=== PATIENT | female | born 1970 | race Caucasian/White ===

== ENCOUNTER 2017-12-17 19:42 | Emergency (ER) | payer OTHER ==
[2017-12-17 19:55] VITALS: BP 135/85; PULSE 85; TEMP 98; BMI 34.9
--- NOTE | 2017-12-17 19:56 | PDOC ---
Rapid Medical Evaluation Chief Complaint: Lightheaded Time Seen by Provider: 12/17/17 19:52 Medical Evaluation: Allergies Allergy/AdvReac Type Severity Reaction Status Date / Time No Known Allergies Allergy Verified 12/17/17 19:52 12/17/17 19:52 Pt presents to the ED for headache starting today. States she has a hx of migraines. States that the pain is a banging. Light and loud sounds makes it worse. Admits to dizziness, nausea. States that shes never had a migraine this intense before. Exam: Appears uncomfortable. No gross neuro deficits Orders: Labs, IV, imaging deferred to provider Pt to proceed to the ED for further evaluation Discharge Disposition - Diagnosis Headache - Referrals - Patient Instructions - Post Discharge Activity
[2017-12-17 20:39] LABS: BASO % 0.6 % (0-2.0); EOS % 1.1 % (0-4.5); HEMATOCRIT 35.2 % (32.4-45.2); LYMPH % 19.8 % (8-40); MCH 23.5 pg (25.7-33.7); MCHC 31.3 g/dl (32.0-36.0); MEAN CELL VOLUME 75.2 fl (80-96); MEAN PLT VOLUME 10.1 fl (7.5-11.1); MONO % 7.1 % (3.8-10.2); NEUT % 71.4 % (42.8-82.8); PLATELET COUNT 244 K/MM3 (134-434); RBC 4.69 M/mm3 (3.60-5.2); RDW 16.4 % (11.6-15.6); WHITE BLOOD COUNT 9.8 K/mm3 (4.0-10.0)
--- NOTE | 2017-12-17 20:39 | PDOC ---
History of Present Illness - History of Present Illness Initial Comments: 12/17/17 20:39 Ms. Schmid is a 47 yo female w/ pmh of HTN, preDM, obesity, s/p bariatric surgery who presents for evaluation of 1 day history of severe headache. Patient reports she gets migraines however has never had one like this before. Light and sound make the headache worse and she has had associated nausea and blurred vision (now resolved). She also endorses dizziness she describes as both the room spinning and unsteadyness. The patient denies chest pain and shortness of breath. Denies fever, chills, vomit, diarrhea and constipation. Denies dysuria, frequency, urgency and hematuria. Allergies: NKDA <Rivera Lacey - Last Filed: 12/17/17 22:55> <Lin Houston - Last Filed: 12/17/17 23:10> - General Chief Complaint: Lightheaded Stated Complaint: PAIN Time Seen by Provider: 12/17/17 19:52 Past History - Past Medical History COPD: No Other medical history: migraines - Suicide/Smoking/Psychosocial Hx Smoking History: Never smoked <Rivera Lacey - Last Filed: 12/17/17 22:55> <Lin Houston - Last Filed: 12/17/17 23:10> - Past Medical History Allergies/Adverse Reactions: Allergies Allergy/AdvReac Type Severity Reaction Status Date / Time No Known Allergies Allergy Verified 12/17/17 19:52 Review of Systems - Review of Systems Comments:: 12/17/17 21:32 GENERAL/CONSTITUTIONAL: No fever or chills. No weakness. HEAD, EYES, EARS, NOSE AND THROAT: +Prior blurryness (now resolved). No ear pain or discharge. No sore throat. CARDIOVASCULAR: No chest pain or shortness of breath RESPIRATORY: No cough, wheezing, or hemoptysis. GASTROINTESTINAL: +1 day of nausea only, no vomiting, diarrhea or constipation. GENITOURINARY: No dysuria, frequency, or change in urination. MUSCULOSKELETAL: No joint or muscle swelling or pain. No neck or back pain. SKIN: No rash NEUROLOGIC: +Headache with dizziness as described, no loss of consciousness, or change in strength/sensation. ENDOCRINE: No increased thirst. No abnormal weight change HEMATOLOGIC/LYMPHATIC: No anemia, easy bleeding, or history of blood clots. ALLERGIC/IMMUNOLOGIC: No hives or skin allergy. <Rivera Lacey - Last Filed: 12/17/17 22:55> *Physical Exam - Vital Signs Last Vital Signs Temp Pulse Resp BP Pulse Ox 98 F 85 18 135/85 100 12/17/17 19:52 12/17/17 19:52 12/17/17 19:52 12/17/17 19:52 12/17/17 19:52 <Rivera Lacey - Last Filed: 12/17/17 22:55> - Vital Signs Last Vital Signs Temp Pulse Resp BP Pulse Ox 98 F 85 18 135/85 100 12/17/17 19:52 12/17/17 19:52 12/17/17 19:52 12/17/17 19:52 12/17/17 19:52 <Lin Houston - Last Filed: 12/17/17 23:10> ED Treatment Course - LABORATORY CBC & Chemistry Diagram: 12/17/17 20:33 12/17/17 20:33 <Rivera Lacey - Last Filed: 12/17/17 22:55> - LABORATORY CBC & Chemistry Diagram: 12/17/17 20:33 12/17/17 20:33 - ADDITIONAL ORDERS Additional order review: Laboratory Results 12/17/17 12/17/17 12/17/17 20:34 20:33 20:33 PT with INR 12.70 INR 1.08 Sodium 138 Potassium 3.4 L Chloride 104 Carbon Dioxide 26 Anion Gap 8 BUN 7 Creatinine 0.6 Creat Clearance w eGFR > 60 Random Glucose 87 Calcium 8.7 Total Bilirubin 0.2 AST 20 ALT 34 Alkaline Phosphatase 107 Total Protein 7.5 Albumin 3.8 Urine Color Yellow Urine Appearance Clear Urine pH 5.0 Ur Specific [place] 1.025 Urine Protein Negative Urine Glucose (UA) Negative Urine Ketones Negative Urine Blood Negative Urine Nitrite Negative Urine Bilirubin Negative Urine Urobilinogen Negative Ur Leukocyte Esterase Negative Urine HCG, Qual Negative 12/17/17 20:33 RBC 4.69 MCV 75.2 L MCHC 31.3 L RDW 16.4 H MPV 10.1 Neutrophils % 71.4 Lymphocytes % 19.8 Monocytes % 7.1 Eosinophils % 1.1 Basophils % 0.6 - Medications Given in the ED: ED Medications Discontinued Medications Generic Name Dose Route Start Last Admin Trade Name Savage PRN Reason Stop Dose Admin Acetaminophen 1,000 mg 12/17/17 20:55 12/17/17 21:10 Ofirmev Injection - IVPB 12/17/17 20:56 1,000 mg ONCE ONE Administration Sodium Chloride 1,000 mls @ 1,000 mls/hr 12/17/17 20:55 12/17/17 21:10 Normal Saline - IV 12/17/17 21:54 1,000 mls/hr ASDIR STA Administration Metoclopramide HCl 10 mg 12/17/17 20:55 12/17/17 21:10 Reglan Injection - IVPUSH 12/17/17 20:56 10 mg ONCE ONE Administration <Lin Houston - Last Filed: 12/17/17 23:10> Medical Decision Making - Medical Decision Making 12/17/17 22:55 Ms. Schmid is a 47 yo female w/ pmh as described who presents for evaluation of "worst headache of life" concerning for sentinel bleed. Patient evaluation started w/ grossly wnl labs as below and head CT ordered. Patient feeling better after reglan, tylenol, and 1L NS. Patient would like to leave AMA from the hospital. Discussed with patient that she could be experiencing acute cranial pathology and leaving w/out CT could result in debilitating condition or . Patient verbalized understanding and elected to leave in any case and signed AMA papers. Strict return precautions given as well which patient agreed with and verbalized she will return as needed. Prompt follow-up with PCP strongly advised as well. Patient leaving AMA. Laboratory Results - last 24 hr 12/17/17 12/17/17 12/17/17 20:33 20:33 20:33 WBC 9.8 RBC 4.69 Hgb 11.0 Hct 35.2 MCV 75.2 L MCH 23.5 L MCHC 31.3 L RDW 16.4 H Plt Count 244 MPV 10.1 Absolute Neuts (auto) 7.0 Neutrophils % 71.4 Lymphocytes % 19.8 Monocytes % 7.1 Eosinophils % 1.1 Basophils % 0.6 Nucleated RBC % 0 PT with INR 12.70 INR 1.08 Sodium 138 Potassium 3.4 L Chloride 104 Carbon Dioxide 26 Anion Gap 8 BUN 7 Creatinine 0.6 Creat Clearance w eGFR > 60 Random Glucose 87 Calcium 8.7 Total Bilirubin 0.2 AST 20 ALT 34 Alkaline Phosphatase 107 Total Protein 7.5 Albumin 3.8 Urine Color Urine Appearance Urine pH Ur Specific [place] Urine Protein Urine Glucose (UA) Urine Ketones Urine Blood Urine Nitrite Urine Bilirubin Urine Urobilinogen Ur Leukocyte Esterase Urine HCG, Qual 12/17/17 20:34 WBC RBC Hgb Hct MCV MCH MCHC RDW Plt Count MPV Absolute Neuts (auto) Neutrophils % Lymphocytes % Monocytes % Eosinophils % Basophils % Nucleated RBC % PT with INR INR Sodium Potassium Chloride Carbon Dioxide Anion Gap BUN Creatinine Creat Clearance w eGFR Random Glucose Calcium Total Bilirubin AST ALT Alkaline Phosphatase Total Protein Albumin Urine Color Yellow Urine Appearance Clear Urine pH 5.0 Ur Specific [place] 1.025 Urine Protein Negative Urine Glucose (UA) Negative Urine Ketones Negative Urine Blood Negative Urine Nitrite Negative Urine Bilirubin Negative Urine Urobilinogen Negative Ur Leukocyte Esterase Negative Urine HCG, Qual Negative <Rivera Lacey - Last Filed: 12/17/17 22:55> *DC/Admit/Observation/Transfer <Rivera Lacey - Last Filed: 12/17/17 22:55> <Lin Houston - Last Filed: 12/17/17 23:10> Diagnosis at time of Disposition: Headache Qualifiers: Headache type: unspecified Headache chronicity pattern: unspecified pattern Intractability: not intractable Qualified Code(s): R51 - Headache - Discharge Dispostion Disposition: AGAINST MEDICAL ADVICE Condition at time of disposition: Good - Patient Instructions Printed Discharge Instructions: DI for Headache Additional Instructions: You were evaluated today in the ER for your headache. You reported relief from symptoms after reglan and tylenol medications and elected to leave the hospital against medical advice after being advised that this could result in severe disability or . Please follow-up with primary care provider tomorrow for further evaluation. Return to ER if any return of headache, fever, altered mental status, or other concerning symptoms. Discussion at the bedside with patient and family. you have capacity to make decisions Discussed indications for treatment and admission, management plan, risks and benefits. There is no evidence of psychosis, altered mental status or intoxication. Pt understands the nature of condition and treatment plan, including potential risks but not limited to: cardiac arrest, severe infection , dehydration, myocardial infarction, arrhythmia, stroke, head bleed, respiratory failure, coma, severe disability and . Pt will be treated with otc analgesia meds as needed and close follow up with primary care doctor with reevaluation. Return precautions advised, call 911 immediately if severe life threatening symptoms or concerns.. Pt has verbalized understanding of information provided, questions answered.
[2017-12-17] MEDS ORDERED: SODIUM CHLORIDE 1,000 ML IV STA (20:55)
[2017-12-17] MEDS ORDERED: METOCLOPRAMIDE HCL INJECTION 10 MG/2 ML VIAL IVPUSH ONE (20:55)
[2017-12-17] MEDS ORDERED: ACETAMINOPHEN 1000 MG/100 ML VIAL (NON FORMULARY) IVPB ONE (20:55)
[2017-12-17 21:06] LABS: URINE APPEARANCE CLEAR; URINE BILIRUBIN NEGATIVE (<2.0 mg/dL); URINE COLOR YELLOW; URINE GLUCOSE (UA) NEGATIVE (NEGATIVE); URINE KETONE NEGATIVE (NEGATIVE); URINE LEUK ESTERASE NEGATIVE (NEGATIVE); URINE NITRITE NEGATIVE (NEGATIVE); URINE PROTEIN NEGATIVE (NEGATIVE); URINE UROBILINOGEN NEGATIVE mg/dL (0.2-1.0)
[2017-12-17 21:07] LABS: HCG,QUALITATIVE URINE Negative
[2017-12-17 21:16] LABS: INR 1.08 (0.83-1.09); PROTHROMBIN TIME (PATIENT) 12.7 SEC (9.7-13.0)
[2017-12-17 21:23] LABS: ALBUMIN 3.8 g/dl (3.4-5.0); ALK PHOS 107 U/L (45-117); ANION GAP 8 MMOL/L (8-16); BILIRUBIN,TOTAL 0.2 mg/dL (0.2-1); BLOOD UREA NITROGEN 7 mg/dL (7-18); CALCIUM 8.7 mg/dL (8.5-10.1); CHLORIDE 104 mmol/L (98-107); CO2 26 mmol/L (21-32); CREATININE 0.6 mg/dL (0.55-1.3); GLUCOSE,RANDOM 87 mg/dL (74-106); POTASSIUM 3.4 mmol/L (3.5-5.1); SGOT/AST 20 U/L (15-37); SGPT/ALT 34 U/L (13-61); SODIUM 138 mmol/L (136-145); TOT PROT 7.5 g/dl (6.4-8.2)
[2017-12-17] MEDS ORDERED: METOCLOPRAMIDE HCL INJECTION 10 MG/2 ML VIAL ONE (21:23)
[2017-12-17] MEDS ORDERED: ACETAMINOPHEN INJECTION 100 ML IVPB ONE (21:23)
--- NOTE | 2017-12-17 22:24 | PDOC ---
Attending Attestation - Resident Resident Name: Rivera Lacey - ED Attending Attestation I have performed the following: I have examined & evaluated the patient, The case was reviewed & discussed with the resident, I agree w/resident's findings & plan - [facility] HPI: 12/17/17 22:23 The patient is a 47 year old female, with a significant past medical history of migraines, obesity, HTN, pre diabetes, post bariatric surgery who presents to the emergency department with blurred vision earlier and persistent headache since this morning. She states she has never experienced a headache this severe , but does have h/o headaches/migraines.. She describes the headache as a constant pounding and diffuse/a/w nausea. She denies taking OTC medications for her symptoms. The patient denies chest pain, shortness of breath, and dizziness. The patient denies fever, chills,diarrhea and constipation. The patient denies dysuria, frequency, urgency and hematuria. no neck stiffness. no sick contacts or travel. Allergies: NKDA Social history: denies toxic habits 12/17/17 22:24 - Physicial Exam PE: 12/17/17 22:25 NAD, well appearing, PERRL, EOMI, MMM, nl conjunctiva, anicteric; neck supple. FROM. lungs clear, RRR, abdomen soft nontender. ARNOLD x4, no focal neuro deficits. No peripheral edema. normal color for ethnicity, WWP. Alert, oriented to person time and place. CN II-XII grossly intact. Strength prox and distally 5/5 throughout. Sensation grossly intact to light touch. ARNOLD x4. No cerebellar signs, no dysmetria, bilateral finger to nose and heel to macias equal and symmetric. Speech clear. - Medical Decision Making 12/17/17 22:25 47 YOF with migraines, HTN, DM, p/w headache. no infectious sx DDx. SAH, migraine, CVA, cervical/vertebral dissection, cerebral aneurysm, tension headache, dehydration, , electrolyte/metabolic derangements. occipital neuralgia, cervicalgia. doubt meningitis w/o meningeal s/s or fever/ toxic appearance. Vital signs reviewed, wnl. afebrile. laboratory results and imaging reviewed, basic labs and lytes wnl, neg preg test. UA_negative, no infection EKG normal sinus rhythm, no interval abnormalities, narrow QRS, ST and T wave segments and morphology normal. Nonspecific T wave abnormalities ED course: no acute events, remained stable and well appearing, texting and using the phone during encounter.. Clinically improved after interventions, including IVF< tylenol and reglan IV> CT head to r/o SAH, CT Angio head and neck r/o aneurysm/dissection given severe headache sx. at 11pm, pt elects to leave prior to completion of workup. Discussion at the bedside with patient and family. Pt has capacity to make medical decisions. Discussed indications for treatment and admission, management plan, risks and benefits. There is no evidence of psychosis, altered mental status or intoxication. Pt understands the nature of condition and treatment plan, including potential risks but not limited to: cardiac arrest, severe infection, dehydration, myocardial infarction, arrhythmia, stroke, head bleed, respiratory failure, coma, severe disability and . Pt will be treated with otc analgesia meds as needed and close follow up with primary care doctor with reevaluation. Return precautions advised, call 911 immediately if severe life threatening symptoms or concerns.. Pt has verbalized understanding of information provided, questions answered. 12/17/17 23:08
== END 2017-12-17 23:38 | disposition left against medical advice (07) ==
LOC: JER 19:42
PROC: 3E033NZ Introduction of Analgesics, Hypnotics, Sedatives into Peripheral Vein, Percutaneous Approach (ICD-10-PCS; principal; 2017-12-17)
PROC: 3E033GC Introduction of Other Therapeutic Substance into Peripheral Vein, Percutaneous Approach (ICD-10-PCS; 2017-12-17)
DX: R51 Headache (principal); I10 Essential (primary) hypertension; R73.03 Prediabetes; Z98.84 Bariatric surgery status
CPT/HCPCS: 36415; 80053; 81003; 84703; 85025; 85610; 96374; 96375; 99283-25; J0131; J7030